=== PATIENT | female | born 1965 | race Two or more races ===

== ENCOUNTER 2020-07-01 15:17 | Outpatient (REF) | payer OTHER, SELFPAY | END 2020-07-01 15:18 | disposition home or self-care (01) | LOC: HO.LAB 15:17 | PROVIDERS: Visit Provider Internal Medicine | DX: Z20.828 Contact with and (suspected) exposure to other viral communicable diseases (principal) | CPT/HCPCS: C9803; U0003 ==

== ENCOUNTER 2020-07-12 14:34 | Outpatient (REF) | payer OTHER, SELFPAY | END 2020-07-12 14:35 | disposition home or self-care (01) | LOC: HO.LAB 14:34 | PROVIDERS: Visit Provider Internal Medicine | DX: Z20.828 Contact with and (suspected) exposure to other viral communicable diseases (principal) | CPT/HCPCS: C9803; U0003 ==

== ENCOUNTER 2022-10-18 12:48 | Outpatient (REF) | payer OTHER, SELFPAY ==
--- NOTE | ~2022-10-18 | MM_ITS ---
EXAMINATION: MM SCREENING DIGITAL BREAST TOMOSYNTHESIS, BILATERAL CLINICAL INFORMATION: Screening. Asymptomatic. The lifetime risk of breast cancer based on the Tyrer-Cuzick Model is 18%. COMPARISON: Mammography: April 19, 2018 and studies dating back to April 20, 2009 TECHNIQUE: Digital breast tomosynthesis is performed in both the craniocaudal and mediolateral oblique views along with computer-aided detection (CAD). Synthesized 2D images are generated from the tomosynthesis. Additional right exaggerated craniocaudal view performed. FINDINGS: There are scattered areas of fibroglandular density (ACR BI-RADS breast composition Category b). There are no significant masses, abnormal calcifications, or other abnormalities. MM/MM tomosynthesis screening BI IMPRESSION: No significant changes from prior exam. ASSESSMENT: BI-RADS 1: Negative RECOMMENDATION: Routine annual mammography screening. This patient's information was entered into a reminder system with a target due date for their next mammogram.
== END 2022-10-18 12:49 | disposition home or self-care (01) ==
LOC: HO.MAMMO 12:48
PROVIDERS: PCP Internal Medicine; Visit Provider Internal Medicine
DX: Z12.31 Encounter for screening mammogram for malignant neoplasm of breast (principal)
CPT/HCPCS: 77063; 77067

== ENCOUNTER 2023-12-14 13:24 | Outpatient (REF) | payer OTHER, SELFPAY | END 2023-12-14 13:25 | disposition home or self-care (01) | LOC: HO.MAMMO 13:24 | PROVIDERS: Visit Provider Internal Medicine | DX: Z12.31 Encounter for screening mammogram for malignant neoplasm of breast (principal) | CPT/HCPCS: 77063; 77067 ==

== ENCOUNTER → 2023-12-14 14:00 | Outpatient (BNV) | payer OTHER, SELFPAY | PROVIDERS: Visit Provider Radiology Diagnostic Radiology | DX: Z12.31 Encounter for screening mammogram for malignant neoplasm of breast (principal) | CPT/HCPCS: 77063; 77067 ==

== ENCOUNTER → 2024-12-19 13:45 | Outpatient (BNV) | payer OTHER, SELFPAY | PROVIDERS: Visit Provider Internal Medicine | DX: Z12.31 Encounter for screening mammogram for malignant neoplasm of breast (principal) | CPT/HCPCS: 77063; 77067 ==

== ENCOUNTER 2024-12-19 13:59 | Outpatient (REF) | payer OTHER, SELFPAY ==
--- OUTSIDE RECORDS SUMMARY | 2024-12-19 14:01 | XMS_ITS | Clinical Summary ---
Author Organization [facility] it Address [address] [place] [address] Care Team Providers Care Boat Puller Name Role Phone Marnie Schulz MD Primary Care Prov ider Allergies No known active allergies Medications fluconazole (DIFLUCAN) 150 mg tablet Take one tablet orally every 3 days for 3 doses 12/30/2023 Active tofacitinib (Xeljanz) 5 mg tablet Take 5 mg by mouth 2 times daily. 06/27/2021 Active Active Problems Problem Noted Date Diagnosed Date Occult closed fracture of scaphoid bone of left wrist 03/18/2020 Onychomycosis 05/10/2017 Seropositive rheumatoid arth ritis ([facility] V24, [facility] V28) 03/10/2010 Overview (07/01/2024): Serpositive, onset 04/22. On mtx since fall 2009 stopped 03/26 - due to hair thinning. 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 Enbrel started 2010 - helpful but patient stopped in summer 2012 due to injection site pains. Humira started 08/29(not working) - changed back to Enbrel (01/26) No insurance, enbrel stopped 02/2020- new insurance, restart enbrel 01/2021- Enbrel stopped- not tolerating injection, switch to olumiant Immunizations Name Administration Dates Next Due Influenza trivalent, 0.5mL, preservative free (Fluarix; FluLaval; Fluzone) ages 6mo and older (Afluria) 3 years and older 06/30/2012,05/08/2011 PPD Test 07/15/2013,05/08/2011 Pneumococcal polysaccharide 23 valent (Pneumovax 23) 2yo and older 05/08/2011 Tdap Tetanus diptheria acell ular pertussis (Boostrix; Adacel) 7yo and older 04/16/2023,03/10/2010 Surgical History Surgery Date Site/Laterality Comments TUBAL LIGATION PROCEDURE: HISTORICAL TUBAL LIGATION COLONOSCOPY 05/15/2017 PROCEDURE: HISTORICAL COLONOSCOPY; COMMENT: negative Medical History Medical History Date Comments Family history of breast can cer in sister 03/14/2010 DX:Family history of breast cancer in sister Rheumatoid arthritis(714.0) 03/10/2010 DX:R heumatoid arthritis(714.0) Hand pain 02/01/2010 DX:Hand pain Pseudomonas infection in con ditions classified elsewhere and of unspecified site 12/06/2010 DX:Pseudomonas infection in conditions classified elsewhere and of unspecified site MRSA (methicillin resistant staph aureus) culture positive 12/06/2010 DX:MRSA (methicillin resista nt staph aureus) culture positive Onychomycosis 05/10/2017 DX:Onychomycosis Family History Medical History Relation Name Comments Arthritis Father Other cancer Maternal Grandmother ovarian Arthritis Paternal Grandmother Breast cancer Sister 1 age 42, deceas ed Relation Name Status Comments Brother 1 Alive Brother 2 Alive Daughter Alive Father Alive arthritis Maternal Grandmother Mother Alive arthritis, DM Paternal Grandmother Sister 1 breast CA Sister 2 Alive Sister 3 Alive Sister 4 Alive Sister 5 Alive Son Alive Social History Tobacco Use Types Packs/Day Years Used Date Smoking Tobacco: Never Smokeless Tobacco: Never Alcohol Use Standard Drinks/Week Comments No 0 (1 standard drink = 0.6 oz pur e alcohol) Comments Unknown Sex and Gender Information Value Date Recorded Sex Assigned at Not on file Legal Sex Female 10:22 AM EST Gender Identity Not on file Sexual Orientation Not on file Obstetrics History Last Filed Vital Signs Vital Sign Reading Time Taken Comments Blood Pressure 134/70 12/27/2023 2:58 PM EDT Pulse 78 12/27/2023 2:58 PM EDT Temperature - - Respiratory Rate - - Oxygen Saturation - - Inhaled Oxygen Concentration - - Weight 69.9 kg (154 lb) 12/27/2023 2:58 PM EDT Height 160 cm (5' 3 ) 11/30/2023 1:16 PM EDT Body Mass Index 27.28 11/30/2023 1:16 PM EDT Plan of Treatment Upcoming Encounters Date Type Department Care Team (Late st Contact Info) Description 02/23/2025 3:00 PM EDT Office Visit Adult Medicine [facility] [address] [place] [address] Ethel Jarquin PA [address] [place] [address] Health Maintenance Due Date Last Done Comments COVID-19 Vaccine (#1) 1971 Hepatitis B Vaccines (1 of 3 - 19+ 3-dose series) 1985 Pneumococcal Vaccine: 50+ Years (2 of 2 - PCV) 2016 05/08/2011 Zoster Vaccines (1 of 2) 2016 Breast Cancer Screening 04/19/2020 04/19/20 18, 04/10/2018, 03/12/2017, Additional history exists Depression Screening 06/23/2022 Social Influencers of Health Screening 06/23/2022 Influenza Vaccine (Season Ended) 2025 06/30/2012, 05/08/2011 Colorectal Cancer Screening: Colonoscopy 05/15/2027 05/15/2017 Cholesterol Screening (Lipid Panel) 06/01/2028 06/01/2023 Cervical Cancer Screening: HPV 11/29/2028 11/30/2023 DTaP,Tdap,and Td Vaccines (3 - Td or Tdap) 04/16/2033 04/16/2023, 03/10/2010 Pneumococcal Vaccine: Pediatrics (0 to 5 Years) and At-Risk Patients (6 to 64 Years) Aged Out 05/08/2011 No longer eligible based on patient's age to complete this topic HIV Screening Completed 02/15/2012 Hepatitis C Screening Completed 01/13/2021 HIB Vaccines Aged Out No longer eligi ble based on patient's age to complete this topic HPV Vaccines Aged Out No longer eligi ble based on patient's age to complete this topic Hepatitis A Vaccines Aged Out No long er eligible based on patient's age to complete this topic IPV Vaccines Aged Out No longer eligi ble based on patient's age to complete this topic MMR Vaccines Aged Out No longer eligi ble based on patient's age to complete this topic Meningococcal ACWY Vaccine Aged Out N o longer eligible based on patient's age to complete this topic Meningococcal B Vaccine Aged Out No l onger eligible based on patient's age to complete this topic RSV Immunization Patients Under 20 months Aged Out No longer eligible based on patient's age to complete this topic Varicella Vaccines Aged Out No longer eligible based on patient's age to complete this topic Procedures Procedure Name Priority Date/Time Associated Diagnosis Comments HPV Routine 11/30/2023 LIPID PANEL Routine 06/01/2023 HEPATITIS C SCREENING Routine 01/13/2021 DX MAMMO INCL CAD UNI Routine 04/19/2018 11:32 AM EDT Other abnormal and inconclusive findings on diagnostic imaging of breast COLONOSCOPY Routine 05/15/2017 HIV SCREENING Routine 02/15/2012 from Last 3 Months or Most Recently Relevant to Health Maintenance Results * Cervical Cancer Screening: HPV (11/30/2023) [facility] Cervical Cancer Screening: HPV Negative, Abstracted Historical Provider HEALTH MAINTENANCE Final Result * (ABNORMAL) Lipid panel (06/01/2023) [facility] LDL/HDL Ratio 4 0 - 4 Triglycerides 87 0 - 150 mg/dL Cholesterol 200 0 - 200 mg/dL HDL 51 >=40 mg/dL LDL Cholesterol 132(A) 0 - 100 mg/dL Blood Venous blood specimen / Unknown Historical Provider LAB BLOOD ORDERABLES Johanna l Result * Hepatitis C Screening (01/13/2021) Pathologist [facility] Hepatitis C Screening Abstracted Historical Provider HEALTH MAINTENANCE Final Result * DX MAMMO INCL CAD UNI (04/19/2018 11:32 AM EDT) Anatomical Region Laterality Modality Mammography 04/15/2018 12:0 6 PM EDT Narrative 04/19/2018 11:51 AM EDT This is a summary report. The complete report is available in the patient's medical record. If you cannot access the medical record, please contact the sending organization for a detailed fax or copy. Diagnostic left mammography and limited left breast ultrasound: Compression CC and MLO views as well as a true lateral view of the left breast were performed. ??There is substantial effacement of the mammographic density in the upper-outer quadrant on screening views. ??However some ill-defined residual density remains present. ??Ultrasound correlation was performed. ??The upper-outer quadrant was surveyed targeting 1 to 2:00. ??The breast architecture is sonographically normal. ??There is no evidence of cyst, nodule or masses. Impression: Negative diagnostic left mammography and left breast ultrasound. BI-RADS Category 1, negative. Procedure Note Kishor Russo MD - 07/04/2022 This is a summary report. The complete report is available in thepatient's medical record. If you cannot access the medical record, pleasecontact the sending organization for a detailed fax or copy. Diagnostic left mammography and limited left breast ultrasound:Compression CC and MLO views as well as a true lateral view of the leftbreast were performed. There is substantial effacement of themammographic density in the upper-outer quadrant on screening views.However some ill-defined residual density remains present. Ultrasoundcorrelation was performed. The upper-outer quadrant was surveyedtargeting 1 to 2:00. The breast architecture is sonographically normal.There is no evidence of cyst, nodule or masses. Impression: Negative diagnostic left mammography and left breastultrasound. BI-RADS Category 1, negative. Dorothea Moncada MD IM BI PROCEDURES Final Resul t * Colonoscopy (05/15/2017) Pathologist [facility] Colonoscopy No interpretation , abstracted Anatomical Region Laterality Modality Other Historical Provider [facility] Final Result * HIV Screening (02/15/2012) HIV Screening Abstracted us Historical Provider HEALTH MAINTENANCE Final Result from Last 3 Months or Most Recently Relevant to Health Maintenance [place] [address] [address] [place] [address] [employer]AN Care Teams Boat Puller Relationship Specialty Start Date End Date Marnie Schulz MD PCP - General Internal Medicine 04/03/22
== END 2024-12-19 14:00 | disposition home or self-care (01) ==
LOC: HO.MAMMO 13:59
PROVIDERS: Visit Provider Internal Medicine
DX: Z12.31 Encounter for screening mammogram for malignant neoplasm of breast (principal)
CPT/HCPCS: 77063; 77067